=== PATIENT | female | born 1990 | race Caucasian/White ===

== ENCOUNTER 2023-11-25 14:09 | Outpatient (CLI) | payer SELFPAY ==
--- NOTE | 2023-11-25 14:16 | MM_ITS ---
WS: [id number] BILATERAL 3D TOMOSYNTHESIS DIGITAL DIAGNOSTIC MAMMOGRAPHY WITH CAD CLINICAL INFORMATION: BREAST LUMP HISTORY: Bilateral palpable lumps COMPARISON: None. TECHNIQUE: Bilateral CC, MLO, and ML views. FINDINGS: Scattered fibroglandular densities bilaterally. Palpable markers bilateral breast. Normal visualized underlying parenchymal tissue. Ultrasound of these areas is pending. No other suspicious abnormalities. ULTRASOUND BREAST BILATERAL TECHNIQUE: Ultrasound bilateral breast focused area of concern. CLINICAL INFORMATION: BREAST LUMP FINDINGS: No lesions to target for biopsy. Ultrasound findings are benign. RIGHT BREAST: Ultrasound areas of concern. Normal-appearing lymph node RIGHT axillary tail. No other suspicious abnormalities in the areas of concern. Ultrasound was performed at the 9 o'clock position and 11 o'clock position and RIGHT axillary tail. LEFT BREAST: Ultrasound area of concern. No suspicious cystic or solid lesions in the patient directe d areas of concern. Ultrasound was performed at the 6 o'clock position MM/[id number] IMPRESSION: BI-RADS: 2-Benign FOLLOW UP: Age 41 Recommend annual screen mammography age 40
== END 2023-11-25 14:10 | disposition home or self-care (01) ==
LOC: RAD 14:10
PROVIDERS: Family Provider Physician Assistant Medical; PCP Nurse Practitioner Family; Visit Provider Nurse Practitioner Family
DX: N63.0 Unspecified lump in unspecified breast (principal); R92.323 Mammographic fibroglandular density, bilateral breasts
CPT/HCPCS: 76642; 77062; G0279